=== PATIENT | male | born 1970 | race Caucasian/White ===

== ENCOUNTER 2021-10-15 17:45 | Emergency (ER) | payer BC, SELFPAY ==
[2021-10-15 18:02] VITALS: BP 162/104; PULSE 92; RESP 18; TEMP 36.9; O2SAT 98; BMI 30.5
--- NOTE | 2021-10-15 19:00 | ED.GENADULT ---
HPI - General Adult General Chief complaint: Fever Stated complaint: Everything Tastes Like Pennies Time Seen by Provider: 10/15/21 18:15 Source: patient Mode of arrival: ambulatory Limitations: no limitations History of Present Illness HPI narrative: 51-year-old male with a history of MS and hypertension coming in today concerned about the taste in his mouth. States that for the last 2 days everything has tasted like copper. He says that on Monday he felt warm and then cold and then on Monday felt better. the sensation of tasting metal started and that has continued into today. He also has states that he smells copper in the air. Sometimes it makes him feel quite nauseated but he has not vomited. He denies any measured temperatures, diarrhea, shortness of breath or chest pain. He does state that he started coughing on Monday as well. He does have some phlegm that comes up when he coughs, phlegm is generally clear. He denies any sick contacts. States he has never had COVID, is fully vaccinated. He denies any headache, changes in his vision or hearing. No increased fatigue. Denies any weakness. Related Data Home Medications Medication Instructions Recorded Confirmed buspirone 10 mg tablet 10 mg PO DAILY 10/15/21 10/15/21 cholecalciferol (vitamin D3) 50 50 mcg PO DAILY 10/15/21 10/15/21 mcg (2,000 unit) capsule (Vitamin D3) fingolimod 0.5 mg capsule (Gilenya) 0.5 mg PO DAILY 10/15/21 10/15/21 lisinopril 20 mg tablet 10 mg PO DAILY 10/15/21 10/15/21 modafinil 200 mg tablet 200 mg PO DAILY 10/15/21 10/15/21 Previous Rx's Medication Instructions Recorded nirmatrelvir 300 mg (150 mg See Rx Instructions PO .COMPLEX 10/15/21 x2)-ritonavir 100 mg tablet,dose #30 ea pack(EUA) (Paxlovid) Allergies Allergy/AdvReac Type Severity Reaction Status Date / Time No Known Drug Allergies Allergy Verified 10/15/21 18:02 Review of Systems Status of ROS: Reports: 10 or more systems reviewed and unremarkable except as noted in History and below Exam Narrative: Exam Narrative: Well-nourished well-developed patient in no acute distress. Alert and oriented. Answers questions appropriately. Mood and affect are appropriate. Thoughts are goal oriented and rational. No tangential or magical thinking noted. Patient speaks in full sentences without needing to catch their breath. HEENT: Normocephalic atraumatic. Pupils are equally round reactive to light. Extraocular muscles are intact. Conjunctivae are moist without any icterus noted. Moist mucous membranes. Posterior pharynx is normal. Neck is soft without any lymphadenopathy or thyromegaly. No masses are appreciated. He has several metal fillings in his mouth, no evidence of gingival infection. Cardiovascular: Heart is regular rate and rhythm S1 and S2 are present without any murmurs. Lungs: Clear to auscultation bilaterally no wheezes rhonchi or rales are appreciated. Patient takes deep breaths without any discomfort. Abdomen: Soft and nontender nondistended with normal bowel sounds. Extremities: Bilateral lower extremities are without edema. Skin: Well perfused without any obvious rashes. Const: Vital Signs, click to edit/add: Vital Signs - 24 hr 10/15/21 18:02 Temperature 98.5 F Pulse Rate [Right Pulse Oximeter] 92 Respiratory Rate 18 Blood Pressure [Ri ght Upper Arm] 162/104 H Pulse Oximetry 98 Oxygen Delivery Me thod Room Air Course Course Hospital Course: COVID test was done which was positive. Vital Signs Vital signs: Initial Vital Signs Temperature 98.5 F 10/15/21 18:02 Temperature Source Temporal Artery Scan 10/15/21 18:02 Pulse Rate 92 10/15/21 18:02 Respiratory Rate 18 10/15/21 18:02 Blood Pressure 162/104 H 10/15/21 18:02 Blood Pressure Mean 123 10/15/21 18:02 Blood Pressure Position Sitting 10/15/21 18:02 Pulse Oximetry 98 10/15/21 18:02 Oxygen Delivery Method 10/15/21 18:02 Vital Signs Temperature 98.5 F 10/15/21 18:02 Pulse Rate 92 10/15/21 18:02 Respiratory Rate 18 10/15/21 18:02 Blood Pressure 162/104 H 10/15/21 18:02 Pulse Oximetry 98 10/15/21 18:02 Oxygen Delivery Method 10/15/21 18:02 Temperature 98.5 F 10/15/21 18:02 Pulse Rate 92 10/15/21 18:02 Respiratory Rate 18 10/15/21 18:02 Blood Pressure 162/104 H 10/15/21 18:02 Pulse Oximetry 98 10/15/21 18:02 Oxygen Delivery Method 10/15/21 18:02 Medical Decision Making MDM Narrative Medical decision making narrative: 51-year-old male with COVID 19. Aside from bad taste in his mouth he is fairly asymptomatic. We discussed risks and benefit of Paxlovid treatment, today is day 5 of his symptoms so he is still within the therapeutic window. I did go through all his medications, buspirone being the only 1 that he should stop. Patient states that he does not feel like he needs the medication anyway and has no issues stopping it for now. Point of care creatinine was done and was normal. Medical Records Medical records reviewed: Yes I reviewed the patient's medical records Lab Data Lab results reviewed: Yes I reviewed the patient's lab results Labs: Lab Results 10/15/21 Range/Units 18:27 SARS-CoV-2 (PCR) POSITIVE SARS-CoV-2 A (Negative) Discharge Plan Discharge Clinical Impression: COVID-19 Patient Disposition: Home, Self-Care Condition: Stable Additional Instructions: Start Paxlovid in the morning. Stop your buspirone, you can restarted 3 days after you finish the Paxlovid. Return to the ER if you're experiencing increasing shortness of breath. You should quarantine yourself for 5 days starting on the 1st day that your symptoms began if you are completely asymptomatic. Otherwise plan on a quarantine for 10 days. Prescriptions: New Paxlovid (EUA) 300 mg (150 mg x 2)-100 mg tablets,dose pack See Rx Instructions .ROUTE .COMPLEX Qty: 30 0RF Rx Instructions: take TWO 150 mg tablets of nirmatrelvir with ONE 100 mg tablet of ritonavir twice daily for 5 days No Action Gilenya 0.5 mg capsule 0.5 mg PO DAILY modafinil 200 mg tablet 200 mg PO DAILY lisinopril 20 mg tablet 10 mg PO DAILY buspirone 10 mg tablet 10 mg PO DAILY cholecalciferol (vitamin D3) [Vitamin D3] 50 mcg (2,000 unit) capsule 50 mcg PO DAILY Stand Alone Forms: [employer] Info Instructions
[2021-10-15 19:20] LABS: SARS PCR* POSITIVE SARS-CoV-2 (Negative)
--- NOTE | 2021-10-15 20:00 | ED.NURSE ---
POC Creat collected and running.
[2021-10-15 20:09] LABS: Creatinine, Point-of-Care* 1.1 mg/dl (0.6-1.3)
== END 2021-10-15 20:21 | disposition home or self-care (01) ==
PROVIDERS: Emergency Provider Family Medicine
DX: U07.1 COVID-19 (principal); R43.9 Unspecified disturbances of smell and taste
CPT/HCPCS: 82565; 87635; 99283; 99284

== ENCOUNTER 2023-07-22 01:09 | Emergency (ER) | payer BC, SELFPAY ==
--- NOTE | 2023-07-22 01:14 | ED.GENADULT ---
HPI - General Adult General Time Seen by Provider: 01:14 Date Seen: 07/22/23 Chief complaint: Groin Pain Stated complaint: Sharp Pain R Side Time Seen by Provider: 07/22/23 01:16 Source: patient, RN notes reviewed and old records reviewed Mode of arrival: ambulatory Limitations: no limitations History of Present Illness HPI narrative: 53-year-old male history of MS who comes in today with right lower quadrant abdominal pain. Patient notes right lower quadrant pain that woke him from sleep about 1 hour prior to coming the emergency department. Pain was sharp, worse with sitting, no radiation into the groin or back. No nausea, vomiting, diarrhea or urinary symptoms. Pain is gone now. Related Data Home Medications ?Medication ?Instructions ?Recorded ?Confirmed buspirone 10 mg tablet 10 mg PO DAILY 10/15/21 07/22/23 cholecalciferol (vitamin D3) 50 50 mcg PO DAILY 10/15/21 07/22/23 mcg (2,000 unit) capsule (Vitamin D3) fingolimod 0.5 mg capsule (Gilenya) 0.5 mg PO DAILY 10/15/21 07/22/23 lisinopril 20 mg tablet 10 mg PO DAILY 10/15/21 07/22/23 modafinil 200 mg tablet 200 mg PO DAILY 10/15/21 10/15/21 Previous Rx's ?Medication ?Instructions ?Recorded nirmatrelvir 300 mg (150 mg See Rx Instructions PO .COMPLEX 10/15/21 x2)-ritonavir 100 mg tablet,dose #30 ea pack (Paxlovid) Allergies Allergy/AdvReac Type Severity Reaction Status Date / Time No Known Drug Allergies [facility]22[facility]23 [facility] Social History Smoking Status: Unknown if ever smoked Do you use any of these nicotine containing products: None Second hand tobacco smoke exposure: No How often do you have a drink containing alcohol: 2-4 times a month How often do you have six or more drinks on one occasion: Never AUDIT-C Alcohol total score: 2 Non-prescribed substance use: denies use Exam Narrative: Exam Narrative: General: Well-developed and well-nourished, no acute distress Head: Atraumatic and normocephalic Eyes: Pupils are equal reactive, extraocular motions intact, conjunctiva clear ENT: External nose and ears are normal, posterior pharynx without erythema or exudate Neck: No midline cervical tenderness, full spontaneous range of motion the neck, trachea midline, no adenopathy Heart: Regular rate and rhythm no murmurs or thrills Lungs: Clear to auscultation bilaterally without wheezes or crackles Abdomen: Soft, nontender, nondistended with active bowel sounds Musculoskeletal: No tenderness, deformity, or edema Neurologic: Awake, alert, and oriented x3, no gross focal neurologic deficits, cranial nerves intact as tested Psych: Mood and affect are appropriate Skin: No rashes Const: Vital Signs, click to edit/add: Vital Signs - 24 hr 07/22/23 01:17 Temperature 99.3 F Pulse Rate [Right Pulse Oximeter] 94 Respiratory Rate 20 Blood Pressure [Ri ght Upper Arm] 174/113 H Pulse Oximetry 96 Oxygen Delivery Me thod Room Air Course Course ED Course: Patient seen and examined, reviewed prior emergency department visit from September 2021 when patient was evaluated for COVID-19, discharged. Patient presents today with right lower quadrant abdominal pain. This is been going on for about an hour, was sharp quite severe but mostly resolved now. On exam here, patient with hypertension but otherwise finally stable. No right lower quadrant tenderness. Discussed options for for testing. Consider acute appendicitis but patient really has no pain now and only had an hour pain, unless he had severe onset an perforated, this little unlikely. Ureteral stone certainly possible given abrupt sharp pain that is improved, which could signify that he passed stone or it may have moved more distally in the ureter. Colonic spasm also possible. Patient with no inguinal mass to suggest hernia. After discussing evaluation options, we agreed to perform a CT scan to evaluate for acute appendicitis or ureteral stone. If this is negative and pain does not return, patient can be discharged with anticipatory guidance. Reevaluation(s) Time of Reevaluation #1: 02:20 Reevaluation #1: CT scan of the abdomen and pelvis independently interpreted by me demonstrates no findings on the right side, there are some calcifications in the pelvis but no evidence for ureteral obstruction Time of Reevaluation #2: 02:41 Reevaluation #2: Reviewed radiology interpretation of CT report which is negative, patient remains comfortable and stable for discharge. Vital Signs Vital signs: Initial Vital Signs Temperature 99.3 F 07/22/23 01:17 Temperature Source Temporal Artery Scan 07/22/23 01:17 Pulse Rate 94 07/22/23 01:17 Respiratory Rate 20 07/22/23 01:17 Blood Pressure 174/113 H 07/22/23 01:17 Blood Pressure Mean 133 H 07/22/23 01:17 Blood Pressure Position Sitting 07/22/23 01:17 Pulse Oximetry 96 07/22/23 01:17 Oxygen Delivery Method Room Air 07/22/23 01:17 Vital Signs Temperature 99.3 F 07/22/23 01:17 Pulse Rate 94 07/22/23 01:17 Respiratory Rate 20 07/22/23 01:17 Blood Pressure 174/113 H 07/22/23 01:17 Pulse Oximetry 96 07/22/23 01:17 Oxygen Delivery Method Room Air 07/22/23 01:17 Temperature 99.3 F 07/22/23 01:17 Pulse Rate 94 07/22/23 01:17 Respiratory Rate 20 07/22/23 01:17 Blood Pressure 174/113 H 07/22/23 01:17 Pulse Oximetry 96 07/22/23 01:17 Oxygen Delivery Method Room Air 07/22/23 01:17 Discharge Plan Discharge Clinical Impression: Abdominal pain, acute, right lower quadrant Patient Disposition: Home, Self-Care Condition: Stable Instructions: Abdominal Pain (ED) Activity Level: No Restrictions Discharge Diet: Regular Prescriptions: No Action fingolimod [Gilenya] 0.5 mg capsule 0.5 mg PO DAILY modafinil 200 mg tablet 200 mg PO DAILY lisinopril 20 mg tablet 10 mg PO DAILY buspirone 10 mg tablet 10 mg PO DAILY cholecalciferol (vitamin D3) [Vitamin D3] 50 mcg (2,000 unit) capsule 50 mcg PO DAILY Paxlovid 300 mg (150 mg x 2)-100 mg tablets,dose pack See Rx Instructions .ROUTE .COMPLEX Qty: 30 0RF Rx Instructions: take TWO 150 mg tablets of nirmatrelvir with ONE 100 mg tablet of ritonavir twice daily for 5 days Follow Up/Referrals: Provider,Not a Local [Primary Care Provider] - Stand Alone Forms: My[facility] Info Instructions
[2023-07-22 01:17] VITALS: BP 174/113; PULSE 94; RESP 20; TEMP 37.4; O2SAT 96; BMI 28.6
--- NOTE | 2023-07-22 01:27 | CRLHL7_ITS ---
For Patients: As a result of the Century Cures Act, medical imaging exams and procedure reports are released immediately into your electronic medical record. You may view this report before your referring provider. If you have questions, please contact your health care provider. INDICATION: Right lower quadrant abdominal pain. TECHNIQUE: CT abdomen and pelvis without contrast. COMPARISON: None. FINDINGS: Lower chest: Unremarkable. Liver: Normal in size and attenuation. Gallbladder and bile ducts: No stones or inflammation. No biliary ductal dilatation. Spleen: Normal in size. Adrenal glands: Normal in size. No nodules. Pancreas: Unremarkable. No mass or inflammation. Kidneys: Normal in size. No stones or hydronephrosis. GI tract: Scattered colonic diverticula without evidence of diverticulitis. No evidence of obstruction. Normal appendix. Lymph nodes: No lymphadenopathy. Vasculature: Abdominal aorta is normal in caliber. 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 No free air or significant free fluid. Pelvis: Unremarkable. Bones: Unremarkable for age. IMPRESSION: No acute abdominal or pelvic abnormality on this noncontrast examination. Please note that all CT scans at this facility use dose modulation, iterative reconstruction, and/or weight-based dosing when appropriate to reduce radiation dose to as low as reasonably achievable. Dictated by El Collins MD @ 07/22/2023 2:39:48 AM (Electronically Signed)
--- OUTSIDE RECORDS SUMMARY | 2023-07-22 01:33 | XMS_ITS | Clinical Summary ---
Author Organization [facility] Address [place], [place] [address] Care Team Providers Care Instrumentation Chemist Name Role Phone Vishal Trevino MD Primary Care Provider Edwina vailable Allergies No known active allergies Medications Medication Sig Dispensed Refills Start Date End Date Status fingolimod (GILENYA) 0.5 mg capsule Take 0.5 mg by mouth once daily. Active modafinil (PROVIGIL) 200 mg tablet Take 1 tablet by mouth once daily as needed for fatigue. 07/23/2015 Active lisinopril (PRINIVIL; ZESTRIL) 20 mg tabletIndications:HTN (hypertension) Take 1 tablet by mouth once daily. 30 tablet 08/18/2015 Active Cholecalciferol, Vitamin D3, 3,000 unit tabIndications:Vitami n D deficiency Take 1 tablet by mouth once daily. 08/18/2015 Active Active Problems Problem Noted Date Diagnosed Date CHIDI (acute kidney injury) 08/17/2015 HTN (hypertension) 08/17/2015 Dizzy 08/16/2015 Chest pain 04/17/2013 Elevated BP 04/17/2013 Abnormal liver function 04/17/2013 Multiple sclerosis Overview: Acute exacerbation Family History Medical History Relation Name Comments Good Health Father Good Health Mother Heart Disease Paternal Grandmother pacema ker Relation Name Status Comments Father Alive Mother Alive Paternal Grandmother Social History Tobacco Use Types Packs/Day Years Used Date Smoking Tobacco: Never Alcohol Use Standard Drinks/Week Comments No 0 (1 standard drink = 0.6 oz pur e alcohol) Sex and Gender Information Value Date Recorded Sex Assigned at Not on file Gender Identity Not on file Sexual Orientation Not on file Obstetrics History Last Filed Vital Signs Vital Sign Reading Time Taken Comments Blood Pressure 131/73 08/18/2015 7:12 AM CDT Pulse 87 08/18/2015 7:12 AM CDT Temperature 36 ??C (96.8 ??F) 08/18/2015 7:12 AM CDT Respiratory Rate 18 08/18/2015 7:12 AM CDT Oxygen Saturation 97% 08/18/2015 7:12 AM CDT Inhaled Oxygen Concentration - - Weight 88.5 kg (195 lb) 08/18/2015 5:23 AM CDT Height 180.3 cm (5' 11) 08/17/2015 12:20 AM CDT Body Mass Index 27.2 08/17/2015 12:20 AM CDT Plan of Treatment Health Maintenance Due Date Last Done Comments Tdap 05/07/1982 Depression screening for age 12+ 1983 HIV for age 15-65 05/07/1986 Hepatitis C screening for ag e 18-79 05/07/1989 Tetanus booster 1991 Colonoscopy through age 75 05/07/2016 BMI (ht and wt on same day) for age 18+ 08/15/2016 08/16/2015 Lipids for age 45-75 04/18/2018 04/18/2013 Zoster (shingles) series for age 50+ (1 of 2) 05/07/2021 COVID-19 vaccine series (2022-24 season) 2022 Influenza for age 50-64 10/29/2023 Pneumococcal series for age 6-64 Aged Out No longer eligible based on patient's age to complete this topic Procedures Procedure Name Priority Date/Time Associated Diagnosis Comments LIPID PANEL Early AM 04/18/2013 4:22 AM STORE OPERATIONS SPECIALIST from Last 3 Months or Most Recently Relevant to Health Maintenance Results * (ABNORMAL) Lipid Panel (04/18/2013 4:22 AM STORE OPERATIONS SPECIALIST) CHOLESTEROL,TOTAL 277(H) 100 - 199 mg/dL 04/18/2013 5:03 AM STORE OPERATIONS SPECIALIST [facility] TRIGLYCERIDES 168(H) <150 mg/dL 04/18/2013 5:03 AM STORE OPERATIONS SPECIALIST [facility] HDL CHOLESTEROL 42 >40 mg/dL 4 5:03 AM STORE OPERATIONS SPECIALIST [facility] NON-HDL CHOLESTEROL 235(H) <145 mg/dl 04/18/2013 5:03 AM STORE OPERATIONS SPECIALIST [facility] CHOL/HDL RATIO 6.60(H) <4.50 04/18/2013 5:03 AM [facility] LDL CHOLESTEROL 201(H) <=130 mg/dL 04/18/2013 5:03 AM STORE OPERATIONS SPECIALIST [facility] PATIENT STATUS FASTING 04/18/2013 5:03 AM STORE OPERATIONS SPECIALIST [facility] Blood specimen (specimen) BLOOD SPECIMEN / Unknown Non-Lab Venipuncture / Unknown 04/18/2013 4:22 AM STORE OPERATIONS SPECIALIST 04/18/2013 4:42 AM STORE OPERATIONS SPECIALIST Lilian Alexandra DO CHEMISTRY [facility] SENDOUT [place]NAL [address]IP [id number] [address] [place] [address] from Last 3 Months or Most Recently Relevant to Health Maintenance Advance Directives * Full Code (Latest Code Status on File) Date Activated Date Inactivated Comments 08/16/2015 10:09 PM 08/18/2015 7:44 PM * Full Code Date Activated Date Inactivated Comments 04/17/2013 9:17 PM 04/18/2013 3:48 PM Care Teams Instrumentation Chemist Relationship Specialty Start Date End Date Vishal Trevino MD PCP - General 09/20/06
--- OUTSIDE RECORDS SUMMARY | 2023-07-22 01:33 | XMS_ITS | Continuity of Care Document ---
Author Name [facility] Organization [facility] Care Team Providers Care Slackman Name Role Phone [facility] Unavailable Unavailable Problems Combined list of problems from Department of Defense and Veterans Affairs facilities. It does not include entries that were removed or entered in error. Problem Status Onset Date Problem Type Date of Resolution Comments Source Erectile dysfunction Active Condition [facility] Hyperlipidemia Active Condition [facility] Hypertensive disorder Active Condition [facility] Major depressive disorder Active Condition [facility] Multiple sclerosis (SNOMED CT [id number]) Active Condition [facility] Diagnosis: ICD-10-CM G35 Multiple sclerosis Active Diagnosis [facility] Diagnosis: ICD-10-CM Z23 Encounter for immunization Active Diagnosis [facility] Diagnosis: ICD-10-CM Z00.00 Encntr for general adult medical exam w/o abnormal findings Active Diagnosis [facility] Medications Combined list of outpatient medications from Department of Defense and Veterans Affairs facilities.Medications provided include 1) outpatient medications from the last 15 months, and 2) patient-reported medications. Medication Details Route Status Patient Instructions Prescription Expires Prescription Number Last Dispense Date Ordering Provider Order Date Order Qty Source ATORVASTATI N [place] 10MG TAB TAKE ONE TABLET BY MOUTH EVERY DAY FOR CHOLESTE ROL ORALLY ACTIVE 06/05/2024 [id number] MALDONADO DALTON 2023 90 [facility] ATORVASTATI N CA 10MG TAB TAKE ONE TABLET BY MOUTH EVERY DAY FOR CHOLESTE ROL ORALLY DISCONT INUED 06/13/2023 [id number] MALDONADO DALTON 2023 90 [facility] ATORVASTATI N CA 10MG TAB TAKE ONE TABLET BY MOUTH EVERY DAY FOR CHOLESTE ROL ORALLY DISCONT INUED 03/12/2023 [id number] MALDONADO DALTON 2022 90 [facility] ATORVASTATI N CA 10MG TAB TAKE ONE TABLET BY MOUTH EVERY DAY FOR CHOLESTE ROL ORALLY DISCONT INUED 12/11/2022 [id number] MALDONADO DALTON Samy 2022 90 [facility] ATORVASTATI N CA 10MG TAB TAKE ONE TABLET BY MOUTH EVERY DAY FOR CHOLESTE ROL ORALLY 06/08/2022 [id number] AMADO HUTCHINSON 2022 90 [facility] BUSPIRONE HCL 10MG TAB TAKE ONE TABLET BY MOUTH TWICE A DAY ORALLY ACTIVE 06/05/2024 [id number] 4 AMADO HUTCHINSON 2023 60 [facility] BUSPIRONE HCL 10MG TAB TAKE ONE TABLET BY MOUTH TWICE A DAY ORALLY DISCONT INUED 04/26/2023 [id number] 4 AMADO HUTCHINSON 2022 60 [facility] FINGOLIMOD 0.5MG CAP TAKE ONE CAPSULE BY MOUTH EVERY DAY FOR MULTIPLE SCLEROSI S (FIRST FILL COMPLETE ) ORALLY ACTIVE 02/02/2024 [id number] CALEB TSE T 2023 30 [facility] FINGOLIMOD 0.5MG CAP TAKE ONE CAPSULE BY MOUTH EVERY DAY ORALLY DISCONT INUED 02/02/2024 [id number] CALEB TSE T 2022 30 [facility] FINGOLIMOD 0.5MG CAP TAKE ONE CAPSULE BY MOUTH DAILY FOR MULTIPLE SCLEROSI S FIRST FILL COMPLETE ORALLY DISCONT INUED (EDIT) 02/04/2023 [id number] CALEB TSE T 2022 30 [facility] LISINOPRIL 20MG TAB TAKE ONE TABLET BY MOUTH EVERY DAY ORALLY ACTIVE 03/15/2024 [id number] AMADO HUTCHINSON 2023 90 [facility] LISINOPRIL 20MG TAB TAKE ONE TABLET BY MOUTH EVERY DAY ORALLY DISCONT INUED 03/09/2023 [id number] AMADO HUTCHINSON 2022 90 [facility] NAPROXEN TAB TAKE BY MOUTH TWO TIMES A DAY NEEDED ORALLY ACTIVE Shannon LONG 2014 [facility] Immunizations Combined list of available immunizations from the Department of Defense and Veterans Affairs facilities. Immunization Series Date Given Administered By Site Reaction Lot Number CVX Code Drug Heel Trimmer Status Comments Source ZOSTER RECOMBINANT 2 2022 LILIAN GOMEZ LEFT DELTO ID [id number] 187 complet ed @@ ENTER DILUENT LOT# HERE [facility] COVID-19 (Cel-Fi by Nextivity), MRNA, LNP-S, BIVALENT BOOSTER, PF, 30 MCG/0.3 ML DOSE 1 2022 TENNILLE DIAZ DAIANA RIGHT DELTO ID [id number] 300 complet ed [facility] TDAP 2022 MARGARITA SILVA LEFT DELTO ID [id number] 115 complet ed [facility] ZOSTER RECOMBINANT 1 2022 MARGARITA SILVA LEFT DELTO ID [id number] 187 complet ed [id number] [facility] INFLUENZA, INJECTABLE, QUADRIVALENT, PRESERVATIVE FREE 2022 MARGARITA SILVA LEFT DELTO ID [id number] 150 complet ed [facility] PNEUMOCOCCAL CONJUGATE PCV 13 2021 133 complet ed [facility] COVID-19 (PFIZER), MRNA, LNP-S, PF, 30 MCG/0.3 ML DOSE 3 2020 208 complet ed PFR; [id number]; 2 [facility] INFLUENZA, INJECTABLE, QUADRIVALENT, PRESERVATIVE FREE 2020 150 complet ed [facility] COVID-19 (PFIZER), MRNA, LNP-S, PF, 30 MCG/0.3 ML DOSE 2 2020 208 complet ed PFR; [id number]; 1 [facility] COVID-19 (PFIZER), MRNA, LNP-S, PF, 30 MCG/0.3 ML DOSE 1 2020 208 complet ed PFR; [id number]; 1 [facility] INFLUENZA, SEASONAL, INJECTABLE, PRESERVATIVE FREE 2017 140 complet ed [facility] PNEUMOCOCCAL POLYSACCHARID E [id number] 2017 33 complet ed merck, [id number], EX 0 [facility] INFLUENZA, SEASONAL, INJECTABLE, PRESERVATIVE FREE 2016 140 complet ed [facility] INFLUENZA, SEASONAL, INJECTABLE, PRESERVATIVE FREE 2015 140 complet ed [facility] INFLUENZA, SEASONAL, INJECTABLE, PRESERVATIVE FREE 2014 140 complet ed [facility] INFLUENZA, SEASONAL, INJECTABLE 2014 141 complet ed [facility] INFLUENZA, UNSPECIFIED FORMULATION 2013 88 complet ed [facility] TDAP 2012 115 complet ed [id number], 11/27/14 [facility] Results Combined list of recent chemistry, hematology and other laboratory results from Department of Defense and Veterans Affairs, ranging from 15 months to all on record, depending upon the facility. Order Name Results Value Reference Range Date Interpretation Specimen Comments Source LIVER FUNCTION TESTS BILIRUBIN.T OTAL [MASS/VOLUM E] IN SERUM OR PLASMA 0.5 0.2 - 1.2 02/01 Specimen Type: PLASMA No comment entered. Ordering Provider: TATI TSE Report Released Date/Time: Feb 01, 2023 03:07 PM Reporting Lab: [facility] [address] Performing Lab: [facility] [address] [facility] LIVER FUNCTION TESTS ALKALINE PHOSPHATASE [ENZYMATIC ACTIVITY/VO LUME] IN SERUM OR PLASMA 108 40 - 150 02/01 Specimen Type: PLASMA No comment entered. Ordering Provider: TATI TSE Report Released Date/Time: Feb 01, 2023 03:07 PM Reporting Lab: [facility] [address] Performing Lab: [facility] [address] [facility] LIVER FUNCTION TESTS ALANINE AMINOTRANSF ERASE [ENZYMATIC ACTIVITY/VO LUME] IN SERUM OR PLASMA 61 <55 - 55 02/01 H Specimen Type: PLASMA No comment entered. Ordering Provider: TATI TSE Report Released Date/Time: Feb 01, 2023 03:07 PM Reporting Lab: [facility] [address] Performing Lab: [facility] [address] [place] [facility] LIVER FUNCTION TESTS ASPARTATE AMINOTRANSF ERASE [ENZYMATIC ACTIVITY/VO LUME] IN SERUM OR PLASMA 32 <34 - 34 02/01 Specimen Type: PLASMA No comment entered. Ordering Provider: TATI TSE Report Released Date/Time: Feb 01, 2023 03:07 PM Reporting Lab: [facility] [phone] Performing Lab: [facility] [address] [place] [facility] LIVER FUNCTION TESTS GAMMA GLUTAMYL TRANSFERASE [ENZYMATIC ACTIVITY/VO LUME] IN SERUM OR PLASMA 78 <64 - 64 02/01 H Specimen Type: PLASMA No comment entered. Ordering Provider: TATI TSE Report Released Date/Time: Feb 01, 2023 03:07 PM Reporting Lab: [facility] [address] Performing Lab: [facility] [address] [place] [facility] CBC LEUKOCYTES [#/VOLUME] IN BLOOD BY AUTOMATED COUNT 6.46 4.0 - 11.0 02/01 Specimen Type: BLOOD No comment entered. Ordering Provider: TATI TSE Report Released Date/Time: Feb 01, 2023 03:07 PM Reporting Lab: [facility] [address] Performing Lab: [facility] [address] [place] [facility] CBC ERYTHROCYTE S [#/VOLUME] IN BLOOD BY AUTOMATED COUNT 5.04 4.6 - 6.2 02/01 Specimen Type: BLOOD No comment entered. Ordering Provider: TATI TSE Report Released Date/Time: Feb 01, 2023 03:07 PM Reporting Lab: [facility] [address] Performing Lab: [facility] [address] [place] [facility] CBC HEMOGLOBIN [MASS/VOLUM E] IN BLOOD 14.7 13.5 - 17.9 02/01 Specimen Type: BLOOD No comment entered. Ordering Provider: TATI TSE Report Released Date/Time: Feb 01, 2023 03:07 PM Reporting Lab: [facility] [address] Performing Lab: [facility] [address] [place] [facility] CBC HEMATOCRIT [VOLUME FRACTION] OF BLOOD BY AUTOMATED COUNT 44.5 41 - 54 02/01 Specimen Type: BLOOD No comment entered. Ordering Provider: TATI TSE Report Released Date/Time: Feb 01, 2023 03:07 PM Reporting Lab: [facility] [address] Performing Lab: [place] [address] [place] [facility] CBC MCV [ENTITIC VOLUME] BY AUTOMATED COUNT 88.3 80 - 100 02/01 Specimen Type: BLOOD No comment entered. Ordering Provider: TATI TSE Report Released Date/Time: Feb 01, 2023 03:07 PM Reporting Lab: [facility] [address] Performing Lab: [facility] [address] [place] [facility] CBC MCH [ENTITIC MASS] BY AUTOMATED COUNT 29.2 27 - 33 02/01 Specimen Type: BLOOD No comment entered. Ordering Provider: TATI TSE Report Released Date/Time: Feb 01, 2023 03:07 PM Reporting Lab: [facility] [address] Performing Lab: [facility] [address] [place] [facility] CBC MCHC [MASS/VOLUM E] BY AUTOMATED COUNT 33.0 32.0 - 37.5 02/01 Specimen Type: BLOOD No comment entered. Ordering Provider: TATI TSE Report Released Date/Time: Feb 01, 2023 03:07 PM Reporting Lab: [facility] [address] Performing Lab: [facility] [address] [place] [facility] CBC PLATELETS [#/VOLUME] IN BLOOD BY AUTOMATED COUNT 343 150 - 400 02/01 Specimen Type: BLOOD No comment entered. Ordering Provider: TATI TSE Report Released Date/Time: Feb 01, 2023 03:07 PM Reporting Lab: [facility] [address] Performing Lab: [facility] [address] [place] [facility] CBC PLATELET MEAN VOLUME [ENTITIC VOLUME] IN BLOOD BY AUTOMATED COUNT 9.1 7.4 - 10.4 02/01 Specimen Type: BLOOD No comment entered. Ordering Provider: TATI TSE Report Released Date/Time: Feb 01, 2023 03:07 PM Reporting Lab: [facility] [address] Performing Lab: [facility] [address] [facility] CBC ERYTHROCYTE DISTRIBUTIO N WIDTH [RATIO] BY AUTOMATED COUNT 13.9 11.5 - 14.5 02/01 Specimen Type: BLOOD No comment entered. Ordering Provider: TATI TSE Report Released Date/Time: Feb 01, 2023 03:07 PM Reporting Lab: [facility] [address] Performing Lab: [facility] [address] [facility] LIPID PANEL,NON -FASTING CHOLESTEROL [MASS/VOLUM E] IN SERUM OR PLASMA 325 <199 - 199 05/09 H Specimen Type: PLASMA Comment: Elevated triglycerid e result from a non-fasting specimen should be interpreted with caution. A fasting panel is recommended for accurate triglycerid es when trigs are >200 from a non-fasting specimen. Triglycerid e concentrati on > 400 mg/dL. LDL and VLDL calculation s cancelled, LDL measured by direct analysis. Ordering Provider: JAROD HUTCHINSON Report Released Date/Time: Mar 10, 2022 01:59 PM Reporting Lab: [facility] [address] Performing Lab: [facility] [address] [facility] LIPID PANEL,NON -FASTING CHOLESTEROL IN HDL [MASS/VOLUM E] IN SERUM OR PLASMA 42 40 05/09 Specimen Type: PLASMA Comment: Elevated triglycerid e result from a non-fasting specimen should be interpreted with caution. A fasting panel is recommended for accurate triglycerid es when trigs are >200 from a non-fasting specimen. Triglycerid e concentrati on > 400 mg/dL. LDL and VLDL calculation s cancelled, LDL measured by direct analysis. Ordering Provider: JAROD HUTCHINSON Report Released Date/Time: Mar 10, 2022 01:59 PM Reporting Lab: [facility] [address] Performing Lab: [facility] [address] [place] [facility] LIPID PANEL,NON -FASTING CHOLESTEROL IN LDL [MASS/VOLUM E] IN SERUM OR PLASMA BY CALCULATION canc <99 - 99 05/09 Specimen Type: PLASMA Comment: Elevated triglycerid e result from a non-fasting specimen should be interpreted with caution. A fasting panel is recommended for accurate triglycerid es when trigs are >200 from a non-fasting specimen. Triglycerid e concentrati on > 400 mg/dL. LDL and VLDL calculation s cancelled, LDL measured by direct analysis. Ordering Provider: JAROD HUTCHINSON Report Released Date/Time: Mar 10, 2022 01:59 PM Reporting Lab: [facility] [phone] Performing Lab: [facility] [address] [place] [facility] LIPID PANEL,NON -FASTING CHOLESTEROL IN VLDL [MASS/VOLUM E] IN SERUM OR PLASMA BY CALCULATION canc <29 - 29 05/09 Specimen Type: PLASMA Comment: Elevated triglycerid e result from a non-fasting specimen should be interpreted with caution. A fasting panel is recommended for accurate triglycerid es when trigs are >200 from a non-fasting specimen. Triglycerid e concentrati on > 400 mg/dL. LDL and VLDL calculation s cancelled, LDL measured by direct analysis. Ordering Provider: JAROD HUTCHINSON Report Released Date/Time: Mar 10, 2022 01:59 PM Reporting Lab: [facility] [address] Performing Lab: [facility] [address] [place] [facility] LIPID PANEL,NON -FASTING CHOLESTEROL NON HDL [MASS/VOLUM E] IN SERUM OR PLASMA 283 <129 - 129 05/09 H Specimen Type: PLASMA Comment: Elevated triglycerid e result from a non-fasting specimen should be interpreted with caution. A fasting panel is recommended for accurate triglycerid es when trigs are >200 from a non-fasting specimen. Triglycerid e concentrati on > 400 mg/dL. LDL and VLDL calculation s cancelled, LDL measured by direct analysis. Ordering Provider: JAROD HUTCHINSON Report Released Date/Time: Mar 10, 2022 01:59 PM Reporting Lab: [facility] [address] Performing Lab: [facility] [address] [place] [facility] LIPID PANEL,NON -FASTING TRIGLYCERID E [MASS/VOLUM E] IN SERUM OR PLASMA 478 <149 - 149 05/09 H Specimen Type: PLASMA Comment: Elevated triglycerid e result from a non-fasting specimen should be interpreted with caution. A fasting panel is recommended for accurate triglycerid es when trigs are >200 from a non-fasting specimen. Triglycerid e concentrati on > 400 mg/dL. LDL and VLDL calculation s cancelled, LDL measured by direct analysis. Ordering Provider: JAROD HUTCHINSON Report Released Date/Time: Mar 10, 2022 01:59 PM Reporting Lab: [facility] [address] Performing Lab: [facility] [address] [place] [facility] LIPID PANEL,NON -FASTING CHOLESTEROL IN LDL [MASS/VOLUM E] IN SERUM OR PLASMA 195 <99 - 99 05/09 H Specimen Type: PLASMA Comment: Elevated triglycerid e result from a non-fasting specimen should be interpreted with caution. A fasting panel is recommended for accurate triglycerid es when trigs are >200 from a non-fasting specimen. Triglycerid e concentrati on > 400 mg/dL. LDL and VLDL calculation s cancelled, LDL measured by direct analysis. Ordering Provider: JAROD HUTCHINSON Report Released Date/Time: Mar 10, 2022 01:59 PM Reporting Lab: [facility] [address] Performing Lab: [facility] [address] [place] [facility] COMPREHEN SIVE METABOLIC PANEL+MG CREATININE [MASS/VOLUM E] IN SERUM OR PLASMA 1.2 0.7 - 1.2 05/09 Specimen Type: PLASMA Comment: Elevated triglycerid e result from a non-fasting specimen should be interpreted with caution. A fasting panel is recommended for accurate triglycerid es when trigs are >200 from a non-fasting specimen. Triglycerid e concentrati on > 400 mg/dL. LDL and VLDL calculation s cancelled, LDL measured by direct analysis. Ordering Provider: JAROD HUTCHINSON Report Released Date/Time: Mar 10, 2022 01:59 PM Reporting Lab: [facility] [address] Performing Lab: [facility] [address] [facility] COMPREHEN SIVE METABOLIC PANEL+MG UREA NITROGEN [MASS/VOLUM E] IN SERUM OR PLASMA 21 8 - 26 05/09 Specimen Type: PLASMA Comment: Elevated triglycerid e result from a non-fasting specimen should be interpreted with caution. A fasting panel is recommended for accurate triglycerid es when trigs are >200 from a non-fasting specimen. Triglycerid e concentrati on > 400 mg/dL. LDL and VLDL calculation s cancelled, LDL measured by direct analysis. Ordering Provider: JAROD HUTCHINSON Report Released Date/Time: Mar 10, 2022 01:59 PM Reporting Lab: [facility] [address] Performing Lab: [facility] [address] [facility] COMPREHEN SIVE METABOLIC PANEL+MG GLUCOSE [MASS/VOLUM E] IN SERUM OR PLASMA 111 70 - 100 05/09 H Specimen Type: PLASMA Comment: Elevated triglycerid e result from a non-fasting specimen should be interpreted with caution. A fasting panel is recommended for accurate triglycerid es when trigs are >200 from a non-fasting specimen. Triglycerid e concentrati on > 400 mg/dL. LDL and VLDL calculation s cancelled, LDL measured by direct analysis. Ordering Provider: JAROD HUTCHINSON Report Released Date/Time: Mar 10, 2022 01:59 PM Reporting Lab: [facility] [address] Performing Lab: [facility] [address] [place] [facility] COMPREHEN SIVE METABOLIC PANEL+MG SODIUM [MOLES/VOLU ME] IN SERUM OR PLASMA 140 136 - 145 05/09 Specimen Type: PLASMA Comment: Elevated triglycerid e result from a non-fasting specimen should be interpreted with caution. A fasting panel is recommended for accurate triglycerid es when trigs are >200 from a non-fasting specimen. Triglycerid e concentrati on > 400 mg/dL. LDL and VLDL calculation s cancelled, LDL measured by direct analysis. Ordering Provider: JAROD HUTCHINSON Report Released Date/Time: Mar 10, 2022 01:59 PM Reporting Lab: [facility] [address] Performing Lab: [facility] [address] [place] [facility] COMPREHEN SIVE METABOLIC PANEL+MG POTASSIUM [MOLES/VOLU ME] IN SERUM OR PLASMA 4.0 3.5 - 5.1 05/09 Specimen Type: PLASMA Comment: Elevated triglycerid e result from a non-fasting specimen should be interpreted with caution. A fasting panel is recommended for accurate triglycerid es when trigs are >200 from a non-fasting specimen. Triglycerid e concentrati on > 400 mg/dL. LDL and VLDL calculation s cancelled, LDL measured by direct analysis. Ordering Provider: JAROD HUTCHINSON Report Released Date/Time: Mar 10, 2022 01:59 PM Reporting Lab: [facility] [address] Performing Lab: [facility] [address] [place] [facility] COMPREHEN SIVE METABOLIC PANEL+MG CHLORIDE [MOLES/VOLU ME] IN SERUM OR PLASMA 107 98 - 107 05/09 Specimen Type: PLASMA Comment: Elevated triglycerid e result from a non-fasting specimen should be interpreted with caution. A fasting panel is recommended for accurate triglycerid es when trigs are >200 from a non-fasting specimen. Triglycerid e concentrati on > 400 mg/dL. LDL and VLDL calculation s cancelled, LDL measured by direct analysis. Ordering Provider: JAROD HUTCHINSON Report Released Date/Time: Mar 10, 2022 01:59 PM Reporting Lab: [facility] [address] Performing Lab: [facility] [address] [place] [facility] COMPREHEN SIVE METABOLIC PANEL+MG CARBON DIOXIDE, TOTAL [MOLES/VOLU ME] IN SERUM OR PLASMA 27 22 - 29 05/09 Specimen Type: PLASMA Comment: Elevated triglycerid e result from a non-fasting specimen should be interpreted with caution. A fasting panel is recommended for accurate triglycerid es when trigs are >200 from a non-fasting specimen. Triglycerid e concentrati on > 400 mg/dL. LDL and VLDL calculation s cancelled, LDL measured by direct analysis. Ordering Provider: JAROD HUTCHINSON Report Released Date/Time: Mar 10, 2022 01:59 PM Reporting Lab: [facility] [address] Performing Lab: [facility] [address] [facility] COMPREHEN [facility]IVE METABOLIC PANEL+MG CALCIUM [MASS/VOLUM E] IN SERUM OR PLASMA 9.7 8.4 - 10.2 05/09 Specimen Type: PLASMA Comment: Elevated triglycerid e result from a non-fasting specimen should be interpreted with caution. A fasting panel is recommended for accurate triglycerid es when trigs are >200 from a non-fasting specimen. Triglycerid e concentrati on > 400 mg/dL. LDL and VLDL calculation s cancelled, LDL measured by direct analysis. Ordering Provider: JAROD HUTCHINSON Report Released Date/Time: Mar 10, 2022 01:59 PM Reporting Lab: [facility] [phone] Performing Lab: [facility] [address] [facility] COMPREHEN SIVE METABOLIC PANEL+MG PROTEIN [MASS/VOLUM E] IN SERUM OR PLASMA 7.2 6.0 - 8.3 05/09 Specimen Type: PLASMA Comment: Elevated triglycerid e result from a non-fasting specimen should be interpreted with caution. A fasting panel is recommended for accurate triglycerid es when trigs are >200 from a non-fasting specimen. Triglycerid e concentrati on > 400 mg/dL. LDL and VLDL calculation s cancelled, LDL measured by direct analysis. Ordering Provider: JAROD HUTCHINSON Report Released Date/Time: Mar 10, 2022 01:59 PM Reporting Lab: [facility] [address] Performing Lab: [facility] [address] [facility] COMPREHEN SIVE METABOLIC PANEL+MG ALBUMIN [MASS/VOLUM E] IN SERUM OR PLASMA 4.5 3.5 - 5.2 05/09 Specimen Type: PLASMA Comment: Elevated triglycerid e result from a non-fasting specimen should be interpreted with caution. A fasting panel is recommended for accurate triglycerid es when trigs are >200 from a non-fasting specimen. Triglycerid e concentrati on > 400 mg/dL. LDL and VLDL calculation s cancelled, LDL measured by direct analysis. Ordering Provider: JAROD HUTCHINSON Report Released Date/Time: Mar 10, 2022 01:59 PM Reporting Lab: [facility] [address] Performing Lab: [facility] [address] [place] [facility] COMPREHEN SIVE METABOLIC PANEL+MG BILIRUBIN.T OTAL [MASS/VOLUM E] IN SERUM OR PLASMA 0.4 0.2 - 1.2 05/09 Specimen Type: PLASMA Comment: Elevated triglycerid e result from a non-fasting specimen should be interpreted with caution. A fasting panel is recommended for accurate triglycerid es when trigs are >200 from a non-fasting specimen. Triglycerid e concentrati on > 400 mg/dL. LDL and VLDL calculation s cancelled, LDL measured by direct analysis. Ordering Provider: JAROD HUTCHINSON Report Released Date/Time: Mar 10, 2022 01:59 PM Reporting Lab: [facility] [phone] Performing Lab: [facility] [address] [place] [facility] COMPREHEN SIVE METABOLIC PANEL+MG MAGNESIUM [MASS/VOLUM E] IN SERUM OR PLASMA 2.2 1.6 - 2.6 05/09 Specimen Type: PLASMA Comment: Elevated triglycerid e result from a non-fasting specimen should be interpreted with caution. A fasting panel is recommended for accurate triglycerid es when trigs are >200 from a non-fasting specimen. Triglycerid e concentrati on > 400 mg/dL. LDL and VLDL calculation s cancelled, LDL measured by direct analysis. Ordering Provider: JAROD HUTCHINSON Report Released Date/Time: Mar 10, 2022 01:59 PM Reporting Lab: [facility] [address] Performing Lab: [facility] [address] [place] [facility] COMPREHEN SIVE METABOLIC PANEL+MG ANION GAP IN SERUM OR PLASMA 6 5 - 15 05/09 Specimen Type: PLASMA Comment: Elevated triglycerid e result from a non-fasting specimen should be interpreted with caution. A fasting panel is recommended for accurate triglycerid es when trigs are >200 from a non-fasting specimen. Triglycerid e concentrati on > 400 mg/dL. LDL and VLDL calculation s cancelled, LDL measured by direct analysis. Ordering Provider: JAROD HUTCHINSON Report Released Date/Time: Mar 10, 2022 01:59 PM Reporting Lab: [facility] [address] Performing Lab: [facility] [address] [place] [facility] COMPREHEN SIVE METABOLIC PANEL+MG ALKALINE PHOSPHATASE [ENZYMATIC ACTIVITY/VO LUME] IN SERUM OR PLASMA 101 40 - 150 05/09 Specimen Type: PLASMA Comment: Elevated triglycerid e result from a non-fasting specimen should be interpreted with caution. A fasting panel is recommended for accurate triglycerid es when trigs are >200 from a non-fasting specimen. Triglycerid e concentrati on > 400 mg/dL. LDL and VLDL calculation s cancelled, LDL measured by direct analysis. Ordering Provider: JAROD HUTCHINSON Report Released Date/Time: Mar 10, 2022 01:59 PM Reporting Lab: [facility] [address] Performing Lab: [facility] [address] [place] [facility] COMPREHEN SIVE METABOLIC PANEL+MG ALANINE AMINOTRANSF ERASE [ENZYMATIC ACTIVITY/VO LUME] IN SERUM OR PLASMA 58 <55 - 55 05/09 H Specimen Type: PLASMA Comment: Elevated triglycerid e result from a non-fasting specimen should be interpreted with caution. A fasting panel is recommended for accurate triglycerid es when trigs are >200 from a non-fasting specimen. Triglycerid e concentrati on > 400 mg/dL. LDL and VLDL calculation s cancelled, LDL measured by direct analysis. Ordering Provider: JAROD HUTCHINSON Report Released Date/Time: Mar 10, 2022 01:59 PM Reporting Lab: [facility] [address] Performing Lab: [facility] [address] [place] [facility] COMPREHEN SIVE METABOLIC PANEL+MG ASPARTATE AMINOTRANSF ERASE [ENZYMATIC ACTIVITY/VO LUME] IN SERUM OR PLASMA 24 <34 - 34 05/09 Specimen Type: PLASMA Comment: Elevated triglycerid e result from a non-fasting specimen should be interpreted with caution. A fasting panel is recommended for accurate triglycerid es when trigs are >200 from a non-fasting specimen. Triglycerid e concentrati on > 400 mg/dL. LDL and VLDL calculation s cancelled, LDL measured by direct analysis. Ordering Provider: JAROD HUTCHINSON Report Released Date/Time: Mar 10, 2022 01:59 PM Reporting Lab: [facility] [address] Performing Lab: [facility] [address] [place] [facility] COMPREHEN SIVE METABOLIC PANEL+MG GLOMERULAR FILTRATION RATE/1.73 SQ M.PREDICTED [VOLUME RATE/AREA] IN SERUM, PLASMA OR BLOOD BY CREATININE- BASED FORMULA (CKD-EPI) 73 60 05/09 Specimen Type: PLASMA Comment: Elevated triglycerid e result from a non-fasting specimen should be interpreted with caution. A fasting panel is recommended for accurate triglycerid es when trigs are >200 from a non-fasting specimen. Triglycerid e concentrati on > 400 mg/dL. LDL and VLDL calculation s cancelled, LDL measured by direct analysis. Ordering Provider: JAROD HUTCHINSON Report Released Date/Time: Mar 10, 2022 01:59 PM Reporting Lab: [facility] [address] Performing Lab: [facility] [address] [place] [facility] HEMOGLOBI N A1C HEMOGLOBIN A1C/HEMOGLO BIN.TOTAL IN BLOOD 5.7 4.0 - 6.0 03/10 Specimen Type: BLOOD Comment: Values obtained from A1C measurement s can vary. For typical A1C assays, a reported value of 7.0 could actually be between 6.7 and 7.3 if measured by a reference method. A reported value of 9.0 could actually be between 8.7 and 9.3. Ref: http://www. [facility].org/[place] Pdata.asp Ordering Provider: JAROD HUTCHINSON Report Released Date/Time: Mar 11, 2021 10:48 AM Reporting Lab: [facility] [address] Performing Lab: [facility] [address] [place] [facility] COMPREHEN SIVE METABOLIC PANEL+MG CREATININE [MASS/VOLUM E] IN SERUM OR PLASMA 1.3 0.7 - 1.2 03/10 H Specimen Type: PLASMA Comment: Elevated triglycerid e result from a non-fasting specimen should be interpreted with caution. A fasting panel is recommended for accurate triglycerid es when trigs are >200 from a non-fasting specimen. Ordering Provider: JAROD HUTCHINSON Report Released Date/Time: Mar 11, 2021 10:48 AM Reporting Lab: [facility] [address] Performing Lab: [facility] [address] [place] [facility] COMPREHEN SIVE METABOLIC PANEL+MG UREA NITROGEN [MASS/VOLUM E] IN SERUM OR PLASMA 12 8 - 26 03/10 Specimen Type: PLASMA Comment: Elevated triglycerid e result from a non-fasting specimen should be interpreted with caution. A fasting panel is recommended for accurate triglycerid es when trigs are >200 from a non-fasting specimen. Ordering Provider: JAROD HUTCHINSON Report Released Date/Time: Mar 11, 2021 10:48 AM Reporting Lab: [facility] [address] Performing Lab: [facility] [address] [place] [facility] COMPREHEN SIVE METABOLIC PANEL+MG GLUCOSE [MASS/VOLUM E] IN SERUM OR PLASMA 97 70 - 100 03/10 Specimen Type: PLASMA Comment: Elevated triglycerid e result from a non-fasting specimen should be interpreted with caution. A fasting panel is recommended for accurate triglycerid es when trigs are >200 from a non-fasting specimen. Ordering Provider: JAROD HUTCHINSON Report Released Date/Time: Mar 11, 2021 10:48 AM Reporting Lab: [facility] [address] Performing Lab: [facility] [address] [place] [facility] COMPREHEN SIVE METABOLIC PANEL+MG SODIUM [MOLES/VOLU ME] IN SERUM OR PLASMA 140 136 - 145 03/10 Specimen Type: PLASMA Comment: Elevated triglycerid e result from a non-fasting specimen should be interpreted with caution. A fasting panel is recommended for accurate triglycerid es when trigs are >200 from a non-fasting specimen. Ordering Provider: JAROD HUTCHINSON Report Released Date/Time: Mar 11, 2021 10:48 AM Reporting Lab: [facility] [address] Performing Lab: [facility] [address] [place] [facility] COMPREHEN SIVE METABOLIC PANEL+MG POTASSIUM [MOLES/VOLU ME] IN SERUM OR PLASMA 3.7 3.5 - 5.1 03/10 Specimen Type: PLASMA Comment: Elevated triglycerid e result from a non-fasting specimen should be interpreted with caution. A fasting panel is recommended for accurate triglycerid es when trigs are >200 from a non-fasting specimen. Ordering Provider: JAROD HUTCHINSON Report Released Date/Time: Mar 11, 2021 10:48 AM Reporting Lab: [facility] [address] Performing Lab: [facility] [address] [facility] COMPREHEN SIVE METABOLIC PANEL+MG CHLORIDE [MOLES/VOLU ME] IN SERUM OR PLASMA 105 98 - 107 03/10 Specimen Type: PLASMA Comment: Elevated triglycerid e result from a non-fasting specimen should be interpreted with caution. A fasting panel is recommended for accurate triglycerid es when trigs are >200 from a non-fasting specimen. Ordering Provider: JAROD HUTCHINSON Report Released Date/Time: Mar 11, 2021 10:48 AM Reporting Lab: [facility] [address] Performing Lab: [facility] [address] [place] [facility] COMPREHEN SIVE METABOLIC PANEL+MG CARBON DIOXIDE, TOTAL [MOLES/VOLU ME] IN SERUM OR PLASMA 27 22 - 29 03/10 Specimen Type: PLASMA Comment: Elevated triglycerid e result from a non-fasting specimen should be interpreted with caution. A fasting panel is recommended for accurate triglycerid es when trigs are >200 from a non-fasting specimen. Ordering Provider: JAROD HUTCHINSON Report Released Date/Time: Mar 11, 2021 10:48 AM Reporting Lab: [facility] [address] Performing Lab: [facility] [address] [place] [facility] COMPREHEN SIVE METABOLIC PANEL+MG CALCIUM [MASS/VOLUM E] IN SERUM OR PLASMA 9.6 8.4 - 10.2 03/10 Specimen Type: PLASMA Comment: Elevated triglycerid e result from a non-fasting specimen should be interpreted with caution. A fasting panel is recommended for accurate triglycerid es when trigs are >200 from a non-fasting specimen. Ordering Provider: JAROD HUTCHINSON Report Released Date/Time: Mar 11, 2021 10:48 AM Reporting Lab: [facility] [address] Performing Lab: [facility] [address] [place] [facility] COMPREHEN SIVE METABOLIC PANEL+MG PROTEIN [MASS/VOLUM E] IN SERUM OR PLASMA 6.9 6.0 - 8.3 03/10 Specimen Type: PLASMA Comment: Elevated triglycerid e result from a non-fasting specimen should be interpreted with caution. A fasting panel is recommended for accurate triglycerid es when trigs are >200 from a non-fasting specimen. Ordering Provider: JAROD HUTCHINSON Report Released Date/Time: Mar 11, 2021 10:48 AM Reporting Lab: [facility] [address] Performing Lab: [facility] [address] [place] [facility] COMPREHEN SIVE METABOLIC PANEL+MG ALBUMIN [MASS/VOLUM E] IN SERUM OR PLASMA 4.3 3.5 - 5.2 03/10 Specimen Type: PLASMA Comment: Elevated triglycerid e result from a non-fasting specimen should be interpreted with caution. A fasting panel is recommended for accurate triglycerid es when trigs are >200 from a non-fasting specimen. Ordering Provider: JAROD HUTCHINSON Report Released Date/Time: Mar 11, 2021 10:48 AM Reporting Lab: [facility] [address] Performing Lab: [facility] [address] [place] [facility] COMPREHEN SIVE METABOLIC PANEL+MG BILIRUBIN.T OTAL [MASS/VOLUM E] IN SERUM OR PLASMA 0.5 0.2 - 1.2 03/10 Specimen Type: PLASMA Comment: Elevated triglycerid e result from a non-fasting specimen should be interpreted with caution. A fasting panel is recommended for accurate triglycerid es when trigs are >200 from a non-fasting specimen. Ordering Provider: JAROD HUTCHINSON Report Released Date/Time: Mar 11, 2021 10:48 AM Reporting Lab: [facility] [address] Performing Lab: [facility] [address] [place] [facility] COMPREHEN SIVE METABOLIC PANEL+MG MAGNESIUM [MASS/VOLUM E] IN SERUM OR PLASMA 2.2 1.6 - 2.6 03/10 Specimen Type: PLASMA Comment: Elevated triglycerid e result from a non-fasting specimen should be interpreted with caution. A fasting panel is recommended for accurate triglycerid es when trigs are >200 from a non-fasting specimen. Ordering Provider: JAROD HUTCHINSON Report Released Date/Time: Mar 11, 2021 10:48 AM Reporting Lab: [facility] [address] Performing Lab: [facility] [address] [place] [facility] COMPREHEN SIVE METABOLIC PANEL+MG ANION GAP IN SERUM OR PLASMA 8 5 - 15 03/10 Specimen Type: PLASMA Comment: Elevated triglycerid e result from a non-fasting specimen should be interpreted with caution. A fasting panel is recommended for accurate triglycerid es when trigs are >200 from a non-fasting specimen. Ordering Provider: JAROD HUTCHINSON Report Released Date/Time: Mar 11, 2021 10:48 AM Reporting Lab: [facility] [address] Performing Lab: [facility] [address] [place] [facility] COMPREHEN SIVE METABOLIC PANEL+MG ALKALINE PHOSPHATASE [ENZYMATIC ACTIVITY/VO LUME] IN SERUM OR PLASMA 99 40 - 150 03/10 Specimen Type: PLASMA Comment: Elevated triglycerid e result from a non-fasting specimen should be interpreted with caution. A fasting panel is recommended for accurate triglycerid es when trigs are >200 from a non-fasting specimen. Ordering Provider: JAROD HUTCHINSON Report Released Date/Time: Mar 11, 2021 10:48 AM Reporting Lab: [facility] [address] Performing Lab: [facility] [address] [place] [facility] COMPREHEN SIVE METABOLIC PANEL+MG ALANINE AMINOTRANSF ERASE [ENZYMATIC ACTIVITY/VO LUME] IN SERUM OR PLASMA 48 <55 - 55 03/10 Specimen Type: PLASMA Comment: Elevated triglycerid e result from a non-fasting specimen should be interpreted with caution. A fasting panel is recommended for accurate triglycerid es when trigs are >200 from a non-fasting specimen. Ordering Provider: JAROD HUTCHINSON Report Released Date/Time: Mar 11, 2021 10:48 AM Reporting Lab: [facility] [address] Performing Lab: [facility] [address] [place] [facility] COMPREHEN SIVE METABOLIC PANEL+MG ASPARTATE AMINOTRANSF ERASE [ENZYMATIC ACTIVITY/VO LUME] IN SERUM OR PLASMA 21 <34 - 34 03/10 Specimen Type: PLASMA Comment: Elevated triglycerid e result from a non-fasting specimen should be interpreted with caution. A fasting panel is recommended for accurate triglycerid es when trigs are >200 from a non-fasting specimen. Ordering Provider: JAROD HUTCHINSON Report Released Date/Time: Mar 11, 2021 10:48 AM Reporting Lab: [facility] [address] Performing Lab: [facility] [address] [place] [facility] COMPREHEN SIVE METABOLIC PANEL+MG GLOMERULAR FILTRATION RATE/1.73 SQ M.PREDICTED [VOLUME RATE/AREA] IN SERUM, PLASMA OR BLOOD BY CREATININE- BASED FORMULA (CKD-EPI) 67 60 03/10 Specimen Type: PLASMA Comment: Elevated triglycerid e result from a non-fasting specimen should be interpreted with caution. A fasting panel is recommended for accurate triglycerid es when trigs are >200 from a non-fasting specimen. Ordering Provider: JAROD HUTCHINSON Report Released Date/Time: Mar 11, 2021 10:48 AM Reporting Lab: [facility] [address] Performing Lab: [facility] [address] [place] [facility] LIPID PANEL,NON -FASTING CHOLESTEROL [MASS/VOLUM E] IN SERUM OR PLASMA 319 <199 - 199 03/10 H Specimen Type: PLASMA Comment: Elevated triglycerid e result from a non-fasting specimen should be interpreted with caution. A fasting panel is recommended for accurate triglycerid es when trigs are >200 from a non-fasting specimen. Ordering Provider: JAROD HUTCHINSON Report Released Date/Time: Mar 11, 2021 10:48 AM Reporting Lab: [facility] [address] Performing Lab: [facility] [address] [place] [facility] LIPID PANEL,NON -FASTING CHOLESTEROL IN HDL [MASS/VOLUM E] IN SERUM OR PLASMA 39 40 03/10 L Specimen Type: PLASMA Comment: Elevated triglycerid e result from a non-fasting specimen should be interpreted with caution. A fasting panel is recommended for accurate triglycerid es when trigs are >200 from a non-fasting specimen. Ordering Provider: JAROD HUTCHINSON Report Released Date/Time: Mar 11, 2021 10:48 AM Reporting Lab: [facility] [address] Performing Lab: [facility] [address] [place] [facility] LIPID PANEL,NON -FASTING CHOLESTEROL IN LDL [MASS/VOLUM E] IN SERUM OR PLASMA BY CALCULATION 213 <99 - 99 03/10 H Specimen Type: PLASMA Comment: Elevated triglycerid e result from a non-fasting specimen should be interpreted with caution. A fasting panel is recommended for accurate triglycerid es when trigs are >200 from a non-fasting specimen. Ordering Provider: JAROD HUTCHINSON Report Released Date/Time: Mar 11, 2021 10:48 AM Reporting Lab: [facility] [address] Performing Lab: [facility] [address] [place] [facility] LIPID PANEL,NON -FASTING CHOLESTEROL IN VLDL [MASS/VOLUM E] IN SERUM OR PLASMA BY CALCULATION 67 <29 - 29 03/10 H Specimen Type: PLASMA Comment: Elevated triglycerid e result from a non-fasting specimen should be interpreted with caution. A fasting panel is recommended for accurate triglycerid es when trigs are >200 from a non-fasting specimen. Ordering Provider: JAROD HUTCHINSON Report Released Date/Time: Mar 11, 2021 10:48 AM Reporting Lab: [facility] [address] Performing Lab: [facility] [address] [place] [facility] LIPID PANEL,NON -FASTING CHOLESTEROL NON HDL [MASS/VOLUM E] IN SERUM OR PLASMA 280 <129 - 129 03/10 H Specimen Type: PLASMA Comment: Elevated triglycerid e result from a non-fasting specimen should be interpreted with caution. A fasting panel is recommended for accurate triglycerid es when trigs are >200 from a non-fasting specimen. Ordering Provider: JAROD HUTCHINSON Report Released Date/Time: Mar 11, 2021 10:48 AM Reporting Lab: [facility] [address] Performing Lab: [facility] [address] [place] [facility] LIPID PANEL,NON -FASTING TRIGLYCERID E [MASS/VOLUM E] IN SERUM OR PLASMA 336 <149 - 149 03/10 H Specimen Type: PLASMA Comment: Elevated triglycerid e result from a non-fasting specimen should be interpreted with caution. A fasting panel is recommended for accurate triglycerid es when trigs are >200 from a non-fasting specimen. Ordering Provider: JAROD HUTCHINSON Report Released Date/Time: Mar 11, 2021 10:48 AM Reporting Lab: [facility] [address] Performing Lab: [facility] [address] [place] [facility] PSA PROSTATE SPECIFIC AG [MASS/VOLUM E] IN SERUM OR PLASMA 0.27 <4.00 - 4.00 03/10 Specimen Type: SERUM No comment entered. Ordering Provider: JAROD HUTCHINSON Report Released Date/Time: Mar 11, 2021 10:48 AM Reporting Lab: [facility] [address] Performing Lab: [facility] [address] [facility] CBC & DIFF LEUKOCYTES [#/VOLUME] IN BLOOD BY AUTOMATED COUNT 5.45 4.0 - 11.0 03/10 Specimen Type: BLOOD Comment: Automated Differentia l Performed Ordering Provider: JAROD HUTCHINSON Report Released Date/Time: Mar 11, 2021 10:48 AM Reporting Lab: [facility] [address] Performing Lab: [facility] [address] [place] [facility] CBC & DIFF ERYTHROCYTE S [#/VOLUME] IN BLOOD BY AUTOMATED COUNT 4.91 4.6 - 6.2 03/10 Specimen Type: BLOOD Comment: Automated Differentia l Performed Ordering Provider: JAROD HUTCHINSON Report Released Date/Time: Mar 11, 2021 10:48 AM Reporting Lab: [facility] [address] Performing Lab: [facility] [address] [place] [facility] CBC & DIFF HEMOGLOBIN [MASS/VOLUM E] IN BLOOD 14.3 13.5 - 17.9 03/10 Specimen Type: BLOOD Comment: Automated Differentia l Performed Ordering Provider: JAROD HUTCHINSON Report Released Date/Time: Mar 11, 2021 10:48 AM Reporting Lab: [facility] [address] Performing Lab: [facility] [address] [place] [facility] CBC & DIFF HEMATOCRIT [VOLUME FRACTION] OF BLOOD BY AUTOMATED COUNT 43.3 41 - 54 03/10 Specimen Type: BLOOD Comment: Automated Differentia l Performed Ordering Provider: JAROD HUTCHINSON Report Released Date/Time: Mar 11, 2021 10:48 AM Reporting Lab: [facility] [address] Performing Lab: [facility] [address] [place] [facility] CBC & DIFF MCV [ENTITIC VOLUME] BY AUTOMATED COUNT 88.2 80 - 100 03/10 Specimen Type: BLOOD Comment: Automated Differentia l Performed Ordering Provider: JAROD HUTCHINSON Report Released Date/Time: Mar 11, 2021 10:48 AM Reporting Lab: [facility] [address] Performing Lab: [facility] [address] [place] [facility] CBC & DIFF MCH [ENTITIC MASS] BY AUTOMATED COUNT 29.1 27 - 33 03/10 Specimen Type: BLOOD Comment: Automated Differentia l Performed Ordering Provider: JAROD HUTCHINSON Report Released Date/Time: Mar 11, 2021 10:48 AM Reporting Lab: [facility] [address] Performing Lab: [facility] [address] [place] [facility] CBC & DIFF MCHC [MASS/VOLUM E] BY AUTOMATED COUNT 33.0 32.0 - 37.5 03/10 Specimen Type: BLOOD Comment: Automated Differentia l Performed Ordering Provider: JAROD HUTCHINSON Report Released Date/Time: Mar 11, 2021 10:48 AM Reporting Lab: [facility] [address] Performing Lab: [facility] [address] [place] [facility] CBC & DIFF PLATELETS [#/VOLUME] IN BLOOD BY AUTOMATED COUNT 351 150 - 400 03/10 Specimen Type: BLOOD Comment: Automated Differentia l Performed Ordering Provider: JAROD HUTCHINSON Report Released Date/Time: Mar 11, 2021 10:48 AM Reporting Lab: [facility] [address] Performing Lab: [facility] [address] [place] [facility] CBC & DIFF PLATELET MEAN VOLUME [ENTITIC VOLUME] IN BLOOD BY AUTOMATED COUNT 9.3 7.4 - 10.4 03/10 Specimen Type: BLOOD Comment: Automated Differentia l Performed Ordering Provider: JAROD HUTCHINSON Report Released Date/Time: Mar 11, 2021 10:48 AM Reporting Lab: [facility] [address] Performing Lab: [facility] [address] [place] [facility] CBC & DIFF NEUTROPHILS /100 LEUKOCYTES IN BLOOD BY MANUAL COUNT 75.9 03/10 Specimen Type: BLOOD Comment: Automated Differentia l Performed Ordering Provider: JAROD HUTCHINSON Report Released Date/Time: Mar 11, 2021 10:48 AM Reporting Lab: [facility] [address] Performing Lab: [facility] [address] [place] [facility] CBC & DIFF LYMPHOCYTES /100 LEUKOCYTES IN BLOOD BY MANUAL COUNT 7.7 03/10 Specimen Type: BLOOD Comment: Automated Differentia l Performed Ordering Provider: JAROD HUTCHINSON Report Released Date/Time: Mar 11, 2021 10:48 AM Reporting Lab: [facility] [address] Performing Lab: [facility] [address] [place] [facility] CBC & DIFF MONOCYTES/1 00 LEUKOCYTES IN BLOOD BY AUTOMATED COUNT 13.9 03/10 Specimen Type: BLOOD Comment: Automated Differentia l Performed Ordering Provider: JAROD HUTCHINSON Report Released Date/Time: Mar 11, 2021 10:48 AM Reporting Lab: [facility] [address] Performing Lab: [facility] [address] [place] [facility] CBC & DIFF EOSINOPHILS /100 LEUKOCYTES IN BLOOD BY AUTOMATED COUNT 1.7 03/10 Specimen Type: BLOOD Comment: Automated Differentia l Performed Ordering Provider: JAROD HUTCHINSON Report Released Date/Time: Mar 11, 2021 10:48 AM Reporting Lab: [facility] [address] Performing Lab: [facility] [address] [place] [facility] CBC & DIFF BASOPHILS/1 00 LEUKOCYTES IN BLOOD BY MANUAL COUNT 0.4 03/10 Specimen Type: BLOOD Comment: Automated Differentia l Performed Ordering Provider: JAROD HUTCHINSON Report Released Date/Time: Mar 11, 2021 10:48 AM Reporting Lab: [facility] [address] Performing Lab: [facility] [address] [place] [facility] CBC & DIFF ERYTHROCYTE DISTRIBUTIO N WIDTH [RATIO] BY AUTOMATED COUNT 13.8 11.5 - 14.5 03/10 Specimen Type: BLOOD Comment: Automated Differentia l Performed Ordering Provider: JAROD HUTCHINSON Report Released Date/Time: Mar 11, 2021 10:48 AM Reporting Lab: [facility] [address] Performing Lab: [facility] [address] [place] [facility] CBC & DIFF LYMPHOCYTES [#/VOLUME] IN BLOOD BY AUTOMATED COUNT 0.42 1.0 - 4.0 03/10 L Specimen Type: BLOOD Comment: Automated Differentia l Performed Ordering Provider: JAROD HUTCHINSON Report Released Date/Time: Mar 11, 2021 10:48 AM Reporting Lab: [facility] [address] Performing Lab: [facility] [address] [place] [facility] CBC & DIFF MONOCYTES [#/VOLUME] IN BLOOD BY AUTOMATED COUNT 0.76 0.1 - 1.0 03/10 Specimen Type: BLOOD Comment: Automated Differentia l Performed Ordering Provider: JAROD HUTCHINSON Report Released Date/Time: Mar 11, 2021 10:48 AM Reporting Lab: [facility] [address] Performing Lab: [facility] [address] [place] [facility] CBC & DIFF NEUTROPHILS [#/VOLUME] IN BLOOD BY AUTOMATED COUNT 4.14 2.0 - 7.7 03/10 Specimen Type: BLOOD Comment: Automated Differentia l Performed Ordering Provider: JAROD HUTCHINSON Report Released Date/Time: Mar 11, 2021 10:48 AM Reporting Lab: [facility] [address] Performing Lab: [facility] [address] [place] [facility] CBC & DIFF EOSINOPHILS [#/VOLUME] IN BLOOD BY AUTOMATED COUNT 0.09 0 - 0.5 03/10 Specimen Type: BLOOD Comment: Automated Differentia l Performed Ordering Provider: JAROD HUTCHINSON Report Released Date/Time: Mar 11, 2021 10:48 AM Reporting Lab: [facility] [address] Performing Lab: [facility] [address] [place] [facility] CBC & DIFF BASOPHILS [#/VOLUME] IN BLOOD BY AUTOMATED COUNT 0.02 0 - 0.2 03/10 Specimen Type: BLOOD Comment: Automated Differentia l Performed Ordering Provider: JAROD HUTCHINSON Report Released Date/Time: Mar 11, 2021 10:48 AM Reporting Lab: [facility] [address] Performing Lab: [facility] [address] [place] [facility] [facility] & DIFF IG(META,MYE LO,PRO) 0.4 03/10 Specimen Type: BLOOD Comment: Automated Differentia l Performed Ordering Provider: JAROD HUTCHINSON Report Released Date/Time: Mar 11, 2021 10:48 AM Reporting Lab: [facility] [id number] Performing Lab: [facility] [id number] [facility] CBC & DIFF IMMATURE GRANULOCYTE S [PRESENCE] IN BLOOD BY AUTOMATED COUNT 0.02 0 - 0.1 03/10 Specimen Type: BLOOD Comment: Automated Differentia l Performed Ordering Provider: JAROD HUTCHINSON Report Released Date/Time: Mar 11, 2021 10:48 AM Reporting Lab: [facility] [id number] Performing Lab: [facility] [id number] [facility] VIT D 25-OH,TOT AL 25-HYDROXYV ITAMIN D3 [MASS/VOLUM E] IN SERUM OR PLASMA 58 12 - 50 02/03 H Specimen Type: SERUM No comment entered. Ordering Provider: TATI TSE Report Released Date/Time: Feb 03, 2022 03:37 PM Reporting Lab: [facility] [id number] Performing Lab: [facility] [id number] [facility] Vital Signs Combined list of inpatient and outpatient Vital Signs from Department of Defense and Veterans Affairs, ranging from 12 months to all on record, depending upon the facility. Vital Sign Value Date Comments Source Encounters Combined list of: 1) Encounters from Department of Veterans Affairs facilities going back up to thelast 18 months. 2) Encounters from the Department of Defense facilities going back up to 280 months. 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
[place],RU PERT E 02[facility]03 [facility] IMMUNIZATI ON ADMIN EACH ADD [id number] Diagnos is: ICD-10- CM Z00.00 Encntr for general adult medical exam w/o abnorma l finding s
JASPERALESSANDRA Madrigal ILDE J 03/10 [facility] ADM SARSCV2 BVL 30MCG/.3ML B [id number] Diagnos is: ICD-10- CM Z23 Encount er for immuniz ation<b r/> HUMBERTO DIAZ 03/10 [facility] Outpatient Encounter [id number] YUAN GARCIA A 04/14 [facility] Outpatient Encounter [id number] PHIDDLESL IE A 04/25 [facility] Outpatient Encounter [id number] MATTHEW RODRIGUEZ M 04/25 [facility] IMMUNIZATI ON ADMIN [id number] Diagnos is: ICD-10- CM Z23 Encount er for immuniz ation<b r/> MARILYN GOMEZ 05/09 [facility] OFFICE O/P EST LOW 20-29 MIN [id number] 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
[place],RU PERT E 02/01 [facility] Outpatient Encounter [id number] 05/18 CASSANDRA LUDWIG [facility] Social History Combined list of available smoking, tobacco, and other social history from Department of Defense and Veterans Affairs facilities. Social History Type Response Date Comment Sourc e Tobacco smoking status NHIS VA-TOBACCO FORMER USER 03/10/2022 [facility] History of tobacco use TX-TOBACCO QUIT 1 TO < 5 YRS 03/10/2022 [facility] History of tobacco use TX-TOBACCO QUIT 1 5 YRS OR MORE 03/11/2021 [facility] History of tobacco use TX-TOBACCO USER E VERY DAY 10/31/2017 [facility] History of tobacco use CURRENT TOBACCO USER 04/28/2016 [facility] History of tobacco use FORMER TOBACCO US ER 7Y OR GREATER 07/23/2015 [facility] History of tobacco use CURRENT TOBACCO USER 09/22/2014 [facility] History of tobacco use FORMER TOBACCO US ER 7Y OR GREATER 09/02/2013 [facility] History of tobacco use FORMER TOBACCO US E >1Y <7Y 09/03/2012 [facility] Plan of Care List of future care activities from Department of Veterans Affairs facilities. Additional future care activities may be listed in the Assessment and Plan section. Date/Time Care Activity Care Activity Detail Facili ty 12/14/2023 AMBULATORY - SURGERY AMBULATORY - SURGERY [facility] Advance Directives List of completed, amended, or rescinded Advance Directives on record at Department of Veterans Affairs facilities. An actual copy of the Directive is not included. Date Advance Directive Provider Source 02/25/2016 CLINICAL WARNING FARIDEH QUIGLEY [facility]
--- OUTSIDE RECORDS SUMMARY | 2023-07-22 01:33 | XMS_ITS | Encounter Summary ---
Author Name [facility] Organization [facility] Address [address] [place] [address] Support Name Relationship Address Phone GREGORIO ARMEN Next of Kin [address] [place] [address] JEANMARIE PERKINS Emergency Contact [address] [place] [address] RICKY PERKINS Next of Kin [phone] [place] [phone] Insurance Providers: All historical and current Section Date Range: From patient's date of to the date document was created. This section includes the names of all active insurance providers for the patient. Insurance Provider Type of Coverage Plan Name Start [id number] Policy Coverage End of Policy Coverage Group Number Member ID Insurance Provider's Telephone Number Policy Freeman's Name Patient's Relationship to Policy Freeman [place]/HEALTH REIMBURSE MENT ARRANGEME NT CHART ER COMM HRA Feb 27, 2021 [id number] [phone] GREGORIOCALIXTO PATIENT [place]/HEALTH SAVINGS ACCOUNT CHART ER COMM HSA Feb 27, 2018 [id number] [phone] GREGORIOCALIXTO PATIENT [place]/HEALTH SAVINGS ACCOUNT CHART ER COMM HSA Feb 27, 2017 [id number] [phone] GREGORIOCALIXTO PATIENT [place]/HEALTH REIMBURSE MENT ARRANG[place] NT CHART ER COMM HRA Feb 27, 2021 [id number] [phone] CALIXTO PERKINS PATIENT [place]/HEALTH SAVINGS ACCOUNT CHART ER COMM HSA Feb 27, 2018 [id number] [phone] CALIXTO PERKINS PATIENT [employer] ([id number]) PRESCRIPT ION CHART ER HRA Feb 27, 2022 [id number] [phone] CALIXTO PERKINS PATIENT [employer]) PRESCRIPT ION HEALT HY CHOIC E HSA Feb 27, 2018 CHARTER [id number] [phone] CALIXTO PERKINS PATIENT [employer]) PRESCRIPT ION CHART ER RX HRA Feb 27, 2018 CHARTER [id number] CALIXTO PERKINS PATIENT [employer]) PRESCRIPT ION SAVER HSA Feb 27, 2017 [id number] [phone] CALIXTO PERKINS PATIENT Selected Encounter This section includes the information on record at ID for the Encounter. Date/Time Encounter Type Encounter Description Reason Pro vider Source May 19, 2023 02:37 PM Outpatient Encounter NEUROLOGY IHE Encounter Template Text not used by ID Plan of Treatment: Future Appointments (+ 6 months) and Future Tests (+/- 45 days) The Plan of Treatment section includes future care activities for the patient from all ID treatmentfacilities. This section includes future appointments and future orders which are active, pending or scheduled. Future Appointments This section includes appointments that were scheduled to occur 6 months from the date of the Encounter, up to a maximum of 20 appointments. The data comes from all ID treatment facilities. Appointment Date/Time Appointment Type Appointme nt Facility Name Jun 02, 2023 05:30 PM AMBULATORY - REHAB MEDICIN E [facility] Social History: Smoking Status (Most current) and Tobacco Use (All prior to encounter date) This section includes the most current, and the historical, smoking and tobacco- related health factors from the ID facility where the Encounter took place. Current Smoking Status This section includes the most current smoking, or tobacco-related health factor, from the ID facility where the Encounter took place. Date/Time Current Smoking Status Comment Jeromy ity Mar 10, 2022 01:45 PM VA-TOBACCO FORMER USER [facility] Tobacco Use History This section includes a history of the smoking, or tobacco-related health factors, that were collected on or before the date of the Encounter. The data comes from the ID facility where the Encounter took place. Date/Time Smoking Status/Tobacco Use Comment F acility Mar 10, 2022 01:45 PM VA-TOBACCO QUIT 1 TO < [address] [facility] Mar 11, 2021 09:15 AM VA-TOBACCO FORMER USER [facility] Mar 11, 2021 09:15 AM VA-TOBACCO QUIT [address] [facility] Oct 31, 2017 09:19 AM VA-TOBACCO DOESNT USE WI [address] [facility] Oct 31, 2017 09:19 AM VA-TOBACCO USE > 1 [address] LESS THAN [address] [facility] Oct 31, 2017 09:19 AM VA-TOBACCO USE ADVICE 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 Oct 31, 2017 09:19 AM VA-TOBACCO USE MED NO [facility] Oct 31, 2017 09:19 AM VA-TOBACCO USER EVERY DAY [facility] Apr 28, 2016 09:28 AM CURRENT TOBACCO USER [facility] July 23, 2015 09:33 AM FORMER TOBACCO USER 7Y OR GREATE R [facility] Sep 22, 2014 01:25 PM CURRENT TOBACCO USER [facility] Sep 02, 2013 02:21 PM FORMER TOBACCO USER 7Y OR GRE[address] R [facility] Sep 03, 2012 08:47 AM FORMER TOBACCO USE >1Y <7Y [facility] Advance Directives: All historical and current Section Date Range: From patient's date of to the date document was created. This section includes ALL of a patient's completed or amended ID Advance and Rescinded Directives. The entries below indicate that a directive exists for the patient, but an actual copy is not included with this document. The data comes from all ID facilities. Date Advance Directives Provider Source Feb 25, 2016 CLINICAL WARN[address]H QUIG[address] [facility] Encounter Notes: All associated encounter notes This section contains the clinical notes associated to the Encounter. Date/Time Encounter Note(s) Provider Source May 19, 2023 02:37 PM REPORT OF CONTACT: LOCAL TITLE: APPOINTMENT SCHEDULING NOTE STANDARD TITLE: REPORT OF CONTACT DATE OF NOTE: MAY 19, 2023@14:37 ENTRY DATE: MAY 19, 2023@14:37:49 AUTHOR: MICHAEL CH EXP COSIGNER: URGENCY: STATUS: COMPLETED Attempted to schedule Return to clinic (RTC) Contact attempt made to 1st attempt Telephone 2nd attempt Text message 3rd attempt Letter - Sent letter by regular [place] mail to address on file: CALIXTO PERKINS [address], [place] [address] Unable to leave voice mail If [facility] calls back, schedule appt for: Activity: 02/01/2023 15:07 New Order entered by [facility] (RESIDENT) Order Text: Return to [facility] on or around ( Jan 31, 2024 ) for a total of 1 appointment(s) Prerequisites: Imaging Orders F2F 30 minutes /es/ Jag Ch Advanced Legal Instructor REC Signed: 05/19/2023 14:[address] [facility]
== END 2023-07-22 02:48 | disposition home or self-care (01) ==
PROVIDERS: Emergency Provider Family Medicine
DX: R10.31 Right lower quadrant pain (principal)
CPT/HCPCS: 74176; 99283; 99284